=== PATIENT | male | born 1950 | race Caucasian/White ===

== ENCOUNTER 2020-01-25 07:47 | Outpatient (CLI) | payer OTHER ==
--- NOTE | 2020-01-25 10:58 | NM ---
Radionucleotide stress only myocardial perfusion scan with CT attenuation correction and SPECT imagin g Left ventricular wall motion evaluation and ejection fraction HISTORY: Chest pain. FINDINGS: Adenosine protocol. Left ventricle appears somewhat distended with thinning of the anterola teral wall. Heterogeneous uptake without focal perfusion defects apparent. QGS analysis of gated SPECT images shows no focal wall motion abnormalities. Ejection fraction calcul ated at 55%. IMPRESSION : No evidence of ischemia. Normal LVEF.
== END 2020-01-25 07:48 | disposition home or self-care (01) ==
LOC: NM 07:47
DX: Z01.89 Encounter for other specified special examinations (principal)
CPT/HCPCS: 78452; 93017; A9500; J0153